=== PATIENT | female | born 1930 | race Caucasian/White ===

== ENCOUNTER 2017-06-01 15:06 | Inpatient (IN) | payer OTHER ==
[2017-06-01 15:16] VITALS: BMI 37.8
--- NOTE | 2017-06-01 16:39 | PDOC ---
History of Present Illness - General History Source: Patient Exam Limitations: No Limitations <Stormy Carpenter - Last Filed: 06/01/17 19:18> - General History Source: Patient, Family Exam Limitations: No Limitations - History of Present Illness Initial Comments: 06/01/17 16:44 The patient is a 87 year old female, with a significant past medical history of hypertension, hyperlipidemia, CKD, diverticulitis, GERD, TIA, rheumatoid arthritis, skin cancer who presents to the emergency department with rectal bleeding since approximately 21:00 last night. The patient reports she noted red blood in the toilet bowl last night. Since then, patient reports at least 5- 6 more episodes of hematochezia. Patient denies any associated melena, abdominal pain, nausea, vomiting, diarrhea, or constipation. She denies any associated chest pain, shortness of breath, diaphoresis, or palpitations. She reports some weakness, but denies any fever, chills, dizziness, lightheadedness , or headache. She denies any dysuria, hematuria, frequency, or urgency. As per daughter, patient is on plavix, but she did not take it this morning. Allergies: Allopurinol, Sulfa(sulfonamide abx), NSAIDS Past Surgical History: None reported Social History: Nonsmoker. No ETOH or recreational drug use. PCP: Dr. Mora Senior Benefits Specialist: Dr. Anglin Physical Metallurgist: Dr. Wilkins <Julio Dumont - Last Filed: 06/01/17 21:45> - General Chief Complaint: Rectal Bleed Stated Complaint: RECTAL BLEED Past History - Past Medical History Anemia: No Asthma: No Cancer: Yes (skin) Cardiac Disorders: No CVA: Yes (TIA'S) COPD: No CHF: Yes (AUG 2013) Dementia: No Diabetes: No GI Disorders: Yes (GERD, ULCER) Disorders: Yes (chronic kidney disease RENAL FAILURE 1995) HTN: Yes Hypercholesterolemia: Yes Liver Disease: No Seizures: No Thyroid Disease: No - Surgical History Abdominal Surgery: No Appendectomy: No Cardiac Surgery: No Cholecystectomy: No Lung Surgery: No Neurologic Surgery: No Orthopedic Surgery: No - Immunization History Immunization Up to Date: Yes - Suicide/Smoking/Psychosocial Hx Smoking Status: No Smoking History: Never smoked Have you smoked in the past 12 months: No Number of Cigarettes Smoked Daily: 0 Hx Alcohol Use: No Drug/Substance Use Hx: No Substance Use Type: None Hx Substance Use Treatment: No <Stormy Carpenter - Last Filed: 06/01/17 19:18> <Julio Dumont - Last Filed: 06/01/17 21:45> - Past Medical History Allergies/Adverse Reactions: Allergies Allergy/AdvReac Type Severity Reaction Status Date / Time allopurinol Allergy Severe Swelling Verified 06/01/17 15:11 Sulfa (Sulfonamide Allergy Unknown Rash Verified 06/01/17 15:11 Antibiotics) NSAIDS (Non-Steroidal AdvReac Severe Nausea Verified 06/01/17 15:11 Anti-Inflamma Home Medications: Ambulatory Orders Ezetimibe [Zetia] 10 mg PO DAILY #0 tablet 09/02/13 Hydroxychloroquine So4 [Plaquenil -] 200 mg PO BID #0 tablet 09/02/13 Cholecalciferol (Vitamin D3) [Vitamin D] 2,000 iu PO DAILY 05/15/14 Clopidogrel Bisulfate [Plavix -] 75 mg PO DAILY 05/15/14 Ethacrynic Acid [Edecrin] 25 mg PO DAILY 05/15/14 Losartan Potassium [Cozaar] 100 mg PO HS 05/15/14 Atenolol [Tenormin -] 75 mg PO DAILY 06/01/17 Review of Systems - Review of Systems Able to Perform ROS?: Yes Comments:: 06/01/17 16:44 GENERAL/CONSTITUTIONAL: Yes weakness. No fever or chills. HEAD, EYES, EARS, NOSE AND THROAT: No change in vision. No ear pain or discharge. No sore throat. CARDIOVASCULAR: No chest pain or shortness of breath. RESPIRATORY: No cough, wheezing, or hemoptysis. GASTROINTESTINAL: Yes rectal bleeding, hematochezia. No melena, abdominal pain, nausea, vomiting, diarrhea or constipation. GENITOURINARY: No dysuria, frequency, or change in urination. MUSCULOSKELETAL: No joint or muscle swelling or pain. No neck or back pain. SKIN: No rash NEUROLOGIC: No headache, vertigo, loss of consciousness, or change in strength/ sensation. ENDOCRINE: No increased thirst. No abnormal weight change. HEMATOLOGIC/LYMPHATIC: No anemia, easy bleeding, or history of blood clots. ALLERGIC/IMMUNOLOGIC: No hives or skin allergy. <Julio Dumont - Last Filed: 06/01/17 21:45> *Physical Exam - Vital Signs Last Vital Signs Temp Pulse Resp BP Pulse Ox 98.2 F 74 20 155/92 99 06/01/17 15:12 06/01/17 15:12 06/01/17 15:12 06/01/17 15:12 06/01/17 15:12 <Stormy Carpenter - Last Filed: 06/01/17 19:18> - Vital Signs Last Vital Signs Temp Pulse Resp BP Pulse Ox 98.2 F 74 20 155/92 99 06/01/17 15:12 06/01/17 15:12 06/01/17 15:12 06/01/17 15:12 06/01/17 15:12 - Physical Exam Comments: 06/01/17 16:45 GENERAL: Awake, alert, and fully oriented, in no acute distress HEAD: No signs of trauma EYES: PERRLA, EOMI, sclera anicteric, conjunctiva clear ENT: Auricles normal inspection, hearing grossly normal, nares patent. Moist mucosa NECK: Normal ROM, supple, no lymphadenopathy, JVD, or masses LUNGS: Breath sounds equal, clear to auscultation bilaterally. No wheezes, and no crackles HEART: Systolic murmur. Regular rate and rhythm, normal S1 and S2, rubs or gallops ABDOMEN: LLQ tenderness to palpation, but no guarding or rebound. Soft, normoactive bowel sounds. No guarding, no rebound. No masses EXTREMITIES: Normal range of motion, no edema. No clubbing or cyanosis. No cords, erythema, or tenderness. DP/PT pulses 2+ and symmetric. NEUROLOGICAL: Moves all extremities. Normal speech. SKIN: Warm, Dry, normal turgor, no rashes or lesions noted. <Julio Dumont - Last Filed: 06/01/17 21:45> Heart Score/ECG Review #1 ECG reviewed & interpreted by me at: 16:59 General ECG Interpretation: Sinus Rhythm, Normal Rate (63), Normal Intervals, No acute ischemic changes (TWI I, AVL V2. ( old)) Compared to previous ECG there are: No significant change (comparison 08/27/2013 ) <Sotrmy Carpenter - Last Filed: 06/01/17 19:18> ED Treatment Course - LABORATORY CBC & Chemistry Diagram: 06/01/17 16:41 06/01/17 16:41 <Stormy Carpenter - Last Filed: 06/01/17 19:18> - LABORATORY CBC & Chemistry Diagram: 06/01/17 16:41 06/01/17 16:41 - RADIOLOGY Radiograph Interpretation: 06/01/17 21:44 EXAM: CT Abdomen and Pelvis INTERPRETED BY: Dr. Hopper REVIEWED BY: Dr. Carpenter IMPRESSION: 1. Calcifications of the aortic and mitral valves. 2. Colonic diverticulosis. 3. Mild dilatation of the midabdominal aorta. 4. Mild dilatation of the right common iliac artery. <Julio Dumont - Last Filed: 06/01/17 21:45> Medical Decision Making - Medical Decision Making 06/01/17 16:36 87 yo F with h/o prior diverticuli , htn, tia, CKD, HLD, RA here today with c/o bright red blood per rectum. started yesterday evening. has had more than 5 - 6 bm, bright red blood mixed with stool. did not take plavix today. feeling weak. no cp no sob. no abd pain. no f/c awake alert lungs clear heart rrr. systolic murmur. abd soft llq ttp. no rebound no guarding. skin warm and dry. plan: differential diverticulosis, diverticulitis, colitis. anemia. plan labs ekg ct a/p cbc byron sutherlandmyesha admit . will d/w dr. anglin ( pt GI) and DR Mora. pcp. renal doctor Dr. Posey 06/01/17 19:18 hgb 11.1, will admit for serial h/h. ct results pending. will admit d/w dr wolfe. who admit . <Stormy Carpenter - Last Filed: 06/01/17 19:18> - Medical Decision Making 06/01/17 19:09 First call placed to Dr. Mora at 19:09. Awaiting call back from Dr. Wolfe. Case discussed with Dr. Wolfe at 19:15. <Julio Dumont - Last Filed: 06/01/17 21:45> *DC/Admit/Observation/Transfer - Discharge Dispostion Admit: Yes <Stormy Carpenter - Last Filed: 06/01/17 19:18> - Attestations Scribe Attestion: 06/01/17 16:45 Documentation prepared by Julio Dumont, acting as medical billing clerk for Stormy Carpenter MD. <Julio Dumont - Last Filed: 06/01/17 21:45> Diagnosis at time of Disposition: GI bleed
[2017-06-01 17:04] LABS: BASOPHIL 0.8 % (0-2.0); EOSINOPHIL 5.2 % (0-4.5); MCH 31.5 pg (25.7-33.7); MCHC 33.6 g/dl (32.0-36.0); MEAN PLT VOLUME 10.3 fl (7.5-11.1); NEUTROPHILS 59.4 % (42.8-82.8); PLATELET COUNT 179 K/MM3 (134-434); RDW 13.1 % (11.6-15.6)
[2017-06-01 17:14] LABS: INR 0.93 (0.82-1.09); PROTHROMBIN TIME (PATIENT) 10.2 SEC (9.98-11.88)
[2017-06-01 17:16] LABS: ACTIVATED PTT 26.5 SECONDS (26.9-34.4)
[2017-06-01 17:31] LABS: ALBUMIN 3.4 g/dl (3.4-5.0); ANION GAP 7 (8-16); BILIRUBIN,TOTAL 0.2 mg/dL (0.2-1.0); CALCIUM 8.5 mg/dL (8.5-10.1); CO2 27 mmol/L (21-32); CREATININE 1.6 mg/dL (0.55-1.02); GLUCOSE,RANDOM 97 mg/dL (74-106); SGOT/AST 22 U/L (15-37); SGPT/ALT 24 U/L (12-78); TOT PROT 5.8 g/dl (6.4-8.2)
[2017-06-01 17:33] LABS: ALK PHOS 62 U/L (45-117); CPK 152 IU/L (26-192); TROPONIN I < 0.02 ng/ml (0.00-0.05)
[2017-06-02 07:56] LABS: MCH 31.4 pg (25.7-33.7); MCHC 33.1 g/dl (32.0-36.0); MEAN CELL VOLUME 94.7 fl (80-96); PLATELET COUNT 157 K/MM3 (134-434); RDW 12.5 % (11.6-15.6); WHITE BLOOD COUNT 4.5 K/mm3 (4.0-10.0)
[2017-06-02 08:25] LABS: ALBUMIN 2.9 g/dl (3.4-5.0); ANION GAP 8 (8-16); CALCIUM 8.3 mg/dL (8.5-10.1); CO2 27 mmol/L (21-32); GLUCOSE,RANDOM 90 mg/dL (74-106); SGPT/ALT 19 U/L (12-78)
[2017-06-02 08:27] LABS: ALK PHOS 55 U/L (45-117); BILIRUBIN,TOTAL 0.4 mg/dL (0.2-1.0); CREATININE 1.6 mg/dL (0.55-1.02); SGOT/AST 19 U/L (15-37); TOT PROT 5.2 g/dl (6.4-8.2)
--- NOTE | 2017-06-02 09:19 | CON.GI ---
Consult Consult Specialty:: GI Referred by:: Michele Wolfe Reason for Consultation:: Rectal bleeding - History of Present Illness Chief Complaint: Pt seen by Dr Betancur in our office yesterday for lower GI bleed. I have brought in a copy of his office consultation note. Given her age, comorbidities, and the presence of gross blood on rectal exam, he thought hospital observation was prudent. Pt denies any further bowel movements since coming to hospital. Her Hgb has dropped since her last outpatient Hgb one month ago. - History Source History Provided By: Patient, Medical Record (Dr Betancur's note, also patient is very alert and oriented, good historian.) - Past Medical History Cardio/Vascular: Yes: HTN, Hyperlipdemia Renal/: Yes: Renal Inusuff Musculoskeletal: Yes: Osteoarthritis Rheumatology: Yes: Rheumatoid Arthritis - Alcohol/Substance Use Hx Alcohol Use: No - Smoking History Smoking history: Never smoked Have you smoked in the past 12 months: No Aproximately how many cigarettes per day: 0 - Social History ADL: Independent History of Recent Travel: No Home Medications - Allergies Allergies/Adverse Reactions: Allergies Allergy/AdvReac Type Severity Reaction Status Date / Time allopurinol Allergy Severe Swelling Verified 06/01/17 15:11 Sulfa (Sulfonamide Allergy Unknown Rash Verified 06/01/17 15:11 Antibiotics) NSAIDS (Non-Steroidal AdvReac Severe Nausea Verified 06/01/17 15:11 Anti-Inflamma - Home Medications Home Medications: Ambulatory Orders Ezetimibe [Zetia] 10 mg PO DAILY #0 tablet 09/02/13 Hydroxychloroquine So4 [Plaquenil -] 200 mg PO BID #0 tablet 09/02/13 Cholecalciferol (Vitamin D3) [Vitamin D] 2,000 iu PO DAILY 05/15/14 Clopidogrel Bisulfate [Plavix -] 75 mg PO DAILY 05/15/14 Ethacrynic Acid [Edecrin] 25 mg PO DAILY 05/15/14 Losartan Potassium [Cozaar] 100 mg PO HS 05/15/14 Atenolol [Tenormin -] 75 mg PO DAILY 06/01/17 Home Medications (free text): Pt had been on clopidogrel through 05/31/17. Family Disease History - Family Disease History Family Disease History: CA: Daughter Physical Exam-GI Vital Signs: Vital Signs Temperature 97.8 F 06/02/17 05:30 Pulse Rate 63 06/02/17 05:30 Respiratory Rate 18 06/02/17 05:30 Blood Pressure 138/56 06/02/17 05:30 O2 Sat by Pulse Oximetry (%) 95 06/01/17 21:25 Cardiovascular: Yes: Regular Rate and Rhythm (II/ RYLEE through precordium.) Gastrointestinal Inspection: Yes: WNL (No tenderness, masses, or organomegaly.) Labs: CBC, BMP 06/02/17 06:45 06/02/17 06:45 INR, PTT INR 0.93 (0.82-1.09) 06/01/17 16:41 Imaging - Results Cat Scan: Image Reviewed (Marked diverticular disease; official report pending.) Problem List - Problems (1) GI bleed Code(s): K92.2 - GASTROINTESTINAL HEMORRHAGE, UNSPECIFIED Assessment/Plan Likely diverticular bleed. Pt's mother had colon cancer, she has a personal history of colon polyps, so I would recommend another colonoscopy as her last was performed in 2004. Nevertheless, this type of bleeding is more typical of diverticulosis than malignancy. I do not see any sign of ischemic colitis on the CT scan, but I question whether there is a narrowed area in the sigmoid colon. I would await the reading by a qualified radiologist. I recommend: 1) Stop Plavix, at least until the GI workup is completed. Ms Townsend does not know why she is on Plavix, she denies any history of cardiac stenting or TIA. She also states she has had frequent falls despite using a walker, and that is another reason to hesitate before reinitiating a powerful antiplatelet agent. 2) Begin full liquid diet. Her next BM will doubtless show blood, so monitoring of her Hgb every 8 hours will be the best way to determine whether there is active bleeding. 3) If Hgb stable, advance diet tomorrow and consider discharge in 48 hrs with outpatient follow-up. Thank you. - Addison Rutledge MD
--- NOTE | 2017-06-02 09:41 | EKG ---
Test Reason : Blood Pressure : / mmHG Vent. Rate : 063 BPM Atrial Rate : 063 BPM P-R Int : 192 ms QRS Dur : 092 ms QT Int : 446 ms P-R-T Axes : 025 002 118 degrees QTc Int : 456 ms NORMAL SINUS RHYTHM ABNORMAL ECG WHEN COMPARED WITH ECG OF 27-AUG-2013 16:30, T WAVE INVERSION NOW EVIDENT IN LATERAL LEADS Confirmed by AILEEN PAREDES MD ([id number]) on 06/02/2017 9:41:26 AM Referred By: Confirmed By:AILEEN PAREDES MD
[2017-06-02] MEDS ORDERED: ETHACRYNIC ACID 25 MG TABLET PO SCH (10:00)
[2017-06-02 10:51] LABS: MCH 30.8 pg (25.7-33.7); MCHC 32.5 g/dl (32.0-36.0); MEAN CELL VOLUME 94.8 fl (80-96); MEAN PLT VOLUME 10.1 fl (7.5-11.1); PLATELET COUNT 171 K/MM3 (134-434); RDW 12.9 % (11.6-15.6); WHITE BLOOD COUNT 4.9 K/mm3 (4.0-10.0)
[2017-06-02] MEDS ORDERED: PT OWN MED DRAWER 7, Y5N ONE ×2 (10:53→21:42)
--- NOTE | 2017-06-02 10:55 | HP ---
Admitting History and Physical - Primary Care Physician PCP: Clair Mora - Admission Chief Complaint: rectal bleeding History of Present Illness: ER HISTORY - History of Present Illness Initial Comments: 06/01/17 16:44 The patient is a 87 year old female, with a significant past medical history of hypertension, hyperlipidemia, CKD, diverticulitis, GERD, TIA, rheumatoid arthritis, skin cancer who presents to the emergency department with rectal bleeding since approximately 21:00 last night. The patient reports she noted red blood in the toilet bowl last night. Since then, patient reports at least 5- 6 more episodes of hematochezia. Patient denies any associated melena, abdominal pain, nausea, vomiting, diarrhea, or constipation. She denies any associated chest pain, shortness of breath, diaphoresis, or palpitations. She reports some weakness, but denies any fever, chills, dizziness, lightheadedness , or headache. She denies any dysuria, hematuria, frequency, or urgency. As per daughter, patient is on plavix, but she did not take it this morning. Allergies: Allopurinol, Sulfa(sulfonamide abx), NSAIDS Past Surgical History: None reported Social History: Nonsmoker. No ETOH or recreational drug use. PCP: Dr. Mora Front Office Manager: Dr. Anglin Ux Developer: Dr. Wilkins Pt examined by me on the floors Pt was having rectal bleeding day before yesterday after 9pm-- bloody bm x 5-6 times. Denies any abdominal pain or dizziness.No chest pain , palpitations. I received a call from Dr Betancur yesterday as the pt had come to his office and she had rectal bleeding -- he sent her to ER for observation. Pt has not had a bloody bm since yesterday morning. No abdominal pain She tolerated clear liquids this AM History Source: Patient, Medical Record Limitations to Obtaining History: No Limitations - Past Medical History Cardiovascular: Yes: HTN, Hyperlipdemia Renal/: Yes: Renal Inusuff Musculoskeletal: Yes: Osteoarthritis Rheumatology: Yes: Rheumatoid Arthritis - Smoking History Smoking history: Never smoked Have you smoked in the past 12 months: No Aproximately how many cigarettes per day: 0 - Alcohol/Substance Use Hx Alcohol Use: No - Social History ADL: Independent History of Recent Travel: No Home Medications - Allergies Allergies/Adverse Reactions: Allergies Allergy/AdvReac Type Severity Reaction Status Date / Time allopurinol Allergy Severe Swelling Verified 06/01/17 15:11 Sulfa (Sulfonamide Allergy Unknown Rash Verified 06/01/17 15:11 Antibiotics) NSAIDS (Non-Steroidal AdvReac Severe Nausea Verified 06/01/17 15:11 Anti-Inflamma - Home Medications Home Medications: Ambulatory Orders Ezetimibe [Zetia] 10 mg PO DAILY #0 tablet 09/02/13 Hydroxychloroquine So4 [Plaquenil -] 200 mg PO BID #0 tablet 09/02/13 Cholecalciferol (Vitamin D3) [Vitamin D] 2,000 iu PO DAILY 05/15/14 Clopidogrel Bisulfate [Plavix -] 75 mg PO DAILY 05/15/14 Ethacrynic Acid [Edecrin] 25 mg PO DAILY 05/15/14 Losartan Potassium [Cozaar] 100 mg PO HS 05/15/14 Atenolol [Tenormin -] 75 mg PO DAILY 06/01/17 Family Disease History - Family Disease History Family Disease History: CA: Daughter Review of Systems - Review of Systems Constitutional: denies: Chills, Fever, Loss of Appetite, Weakness Respiratory: denies: Cough Gastrointestinal: reports: Rectal Bleeding. denies: Abdominal Pain, Nausea Physical Examination Vital Signs: Vital Signs Temperature 97.8 F 06/02/17 05:30 Pulse Rate 63 06/02/17 05:30 Respiratory Rate 18 06/02/17 05:30 Blood Pressure 138/56 06/02/17 05:30 O2 Sat by Pulse Oximetry (%) 95 06/01/17 21:25 Constitutional: Yes: No Distress, Calm Cardiovascular: Yes: Regular Rate and Rhythm Respiratory: Yes: CTA Bilaterally Gastrointestinal: Yes: Normal Bowel Sounds, Soft, Abdomen, Obese. No: Distention, Tenderness Edema: No Psychiatric: Yes: Alert, Oriented Labs: CBC, BMP 06/02/17 10:30 06/02/17 06:45 Imaging - Results Cat Scan: Report Reviewed EKG: Image Reviewed (NSR, T wave inversion) Problem List - Problems (1) GI bleed Code(s): K92.2 - GASTROINTESTINAL HEMORRHAGE, UNSPECIFIED (2) HTN (hypertension) Code(s): I10 - ESSENTIAL (PRIMARY) HYPERTENSION (3) Rheumatoid arthritis Code(s): M06.9 - RHEUMATOID ARTHRITIS, UNSPECIFIED (4) Chronic kidney disease Code(s): N18.9 - CHRONIC KIDNEY DISEASE, UNSPECIFIED Qualifiers: Chronic kidney disease stage: stage 3 (moderate) Qualified Code(s): N18.3 - Chronic kidney disease, stage 3 (moderate); N18.3 - Chronic kidney disease, stage 3 (moderate) (5) Diverticulosis Code(s): K57.90 - DVRTCLOS OF INTEST, PART UNSP, W/O PERF OR ABSCESS W/O BLEED Qualifiers: Diverticulosis bleeding: diverticulosis without bleeding Assessment/Plan PLAN Received iv fluids CT abd/pelvis noted \ No bloody bm so far Check CBC q 8H GI eval noted DC Plavix-- she was on it for 20years as a stroke precaution-- can not tolerate ASA-- sulpha allergy- father had h/o CVA Creatinine is better- was 1.9 on 05/05/17 continue with meds advance diet in AM if no drop in HCT SCD for DVT prophylaxis spoke with daughter
[2017-06-02] MEDS: LOSARTAN POTASSIUM 100 MG TABLET PO SCH (11:38)
[2017-06-02] MEDS: CHOLECALCIFEROL (VITAMIN D3) 1,000 UNIT TABLET (FP) PO SCH (11:38)
[2017-06-02] MEDS: ATENOLOL 50 MG TABLET (FP) PO SCH (11:38)
[2017-06-02] MEDS: HYDROXYCHLOROQUINE SO4 200 MG TABLET (FP) PO SCH ×2 (11:39→21:48)
[2017-06-02] MEDS: EZETIMIBE 10 MG TABLET (FP) PO SCH (11:39)
[2017-06-02 12:30] LABS: BASOPHIL 0.7 % (0-2.0); MCH 31.1 pg (25.7-33.7); MCHC 32.8 g/dl (32.0-36.0); MEAN CELL VOLUME 94.8 fl (80-96); MEAN PLT VOLUME 10.1 fl (7.5-11.1); NEUTROPHILS 55.9 % (42.8-82.8); PLATELET COUNT 169 K/MM3 (134-434); RDW 12.9 % (11.6-15.6)
[2017-06-02 20:51] LABS: MCH 30.9 pg (25.7-33.7); MCHC 32.8 g/dl (32.0-36.0); MEAN CELL VOLUME 94.3 fl (80-96); MEAN PLT VOLUME 10.5 fl (7.5-11.1); PLATELET COUNT 158 K/MM3 (134-434); RDW 12.7 % (11.6-15.6); WHITE BLOOD COUNT 6.1 K/mm3 (4.0-10.0)
[2017-06-03 08:28] LABS: MCH 31.4 pg (25.7-33.7); MCHC 33.2 g/dl (32.0-36.0); MEAN CELL VOLUME 94.4 fl (80-96); MEAN PLT VOLUME 9.8 fl (7.5-11.1); PLATELET COUNT 164 K/MM3 (134-434); RDW 12.7 % (11.6-15.6); WHITE BLOOD COUNT 5.2 K/mm3 (4.0-10.0)
[2017-06-03] MEDS ORDERED: ETHACRYNIC ACID 25 MG TABLET PO SCH (10:00)
[2017-06-03] MEDS ORDERED: PT OWN MED DRAWER 7, Y5N ONE (10:06)
[2017-06-03] MEDS: CHOLECALCIFEROL (VITAMIN D3) 1,000 UNIT TABLET (FP) PO SCH (10:28)
[2017-06-03] MEDS: LOSARTAN POTASSIUM 100 MG TABLET PO SCH (10:28)
[2017-06-03] MEDS: ATENOLOL 50 MG TABLET (FP) PO SCH (10:28)
[2017-06-03] MEDS: EZETIMIBE 10 MG TABLET (FP) PO SCH (10:29)
[2017-06-03] MEDS: HYDROXYCHLOROQUINE SO4 200 MG TABLET (FP) PO SCH ×2 (10:29→21:24)
--- NOTE | 2017-06-03 10:49 | PN ---
Progress Note (short form) - Note Progress Note: GI follow-up. No BM since admission. No further gross bleeding. Hgb/Hct stable. Tolerating diet. Continue to hold Plavix. Will d/c q8h H/H. Pt can follow-up as outpatient to arrange surveillance colonoscopy. Thank you - will no longer follow unless requested again. - Addison Rutledge MD Problem List - Problems (1) GI bleed Code(s): K92.2 - GASTROINTESTINAL HEMORRHAGE, UNSPECIFIED
--- NOTE | 2017-06-03 13:58 | PN ---
Progress Note, Physician Chief Complaint: had a bm today-- small amount of blood- no abdominal pain feels lightheaded ate regular food now - Current Medication List Current Medications: Active Medications Atenolol (Tenormin -) 50 mg PO DAILY REPLACED BY [facility] Last Admin: 06/03/17 10:28 Dose: 50 mg Cholecalciferol (Vitamin D3 -) 2,000 unit PO DAILY REPLACED BY [facility] Last Admin: 06/03/17 10:28 Dose: 2,000 unit Ezetimibe (Zetia -) 10 mg PO DAILY REPLACED BY [facility] Last Admin: 06/03/17 10:29 Dose: 10 mg Ethacrynic Acid (Edecrin -) 25 mg PO [facility] Hydroxychloroquine Sulfate (Plaquenil -) 200 mg PO BID REPLACED BY [facility] Last Admin: 06/03/17 10:29 Dose: 200 mg Losartan Potassium (Losartan Potassium) 100 mg PO DAILY REPLACED BY [facility] Last Admin: 06/03/17 10:28 Dose: 100 mg - Objective Vital Signs: Vital Signs Temperature 98.2 F 06/03/17 06:00 Pulse Rate 67 06/03/17 06:00 Respiratory Rate 18 06/03/17 06:00 Blood Pressure 119/56 06/03/17 06:00 O2 Sat by Pulse Oximetry (%) 95 06/01/17 21:25 Constitutional: Yes: No Distress, Calm Cardiovascular: Yes: Regular Rate and Rhythm Respiratory: Yes: CTA Bilaterally Gastrointestinal: Yes: Normal Bowel Sounds, Soft, Abdomen, Obese. No: Distention, Tenderness Edema: No Labs: CBC, BMP 06/03/17 08:00 06/02/17 06:45 INR, PTT INR 0.93 (0.82-1.09) 06/01/17 16:41 Problem List - Problems (1) GI bleed Code(s): K92.2 - GASTROINTESTINAL HEMORRHAGE, UNSPECIFIED (2) HTN (hypertension) Code(s): I10 - ESSENTIAL (PRIMARY) HYPERTENSION (3) Rheumatoid arthritis Code(s): M06.9 - RHEUMATOID ARTHRITIS, UNSPECIFIED (4) Chronic kidney disease Code(s): N18.9 - CHRONIC KIDNEY DISEASE, UNSPECIFIED Qualifiers: Chronic kidney disease stage: stage 3 (moderate) Qualified Code(s): N18.3 - Chronic kidney disease, stage 3 (moderate); N18.3 - Chronic kidney disease, stage 3 (moderate) (5) Diverticulosis Code(s): K57.90 - DVRTCLOS OF INTEST, PART UNSP, W/O PERF OR ABSCESS W/O BLEED Qualifiers: Diverticulosis bleeding: diverticulosis without bleeding Assessment/Plan PLAN HCT stable Lightheaded likely due to dehydration, staying in bed-- advised to get OOB now, may start walking with walker Regular diet Check HB tomorrow will dc in AM if stable SCD for DVT prophylaxis GI follow up noted
[2017-06-04 06:33] VITALS: TEMP 97.8
[2017-06-04 08:41] LABS: MCH 31.1 pg (25.7-33.7); MCHC 32.9 g/dl (32.0-36.0); MEAN CELL VOLUME 94.7 fl (80-96); PLATELET COUNT 156 K/MM3 (134-434); RDW 12.9 % (11.6-15.6); WHITE BLOOD COUNT 5.5 K/mm3 (4.0-10.0)
--- NOTE | 2017-06-04 09:02 | DS ---
Physical Examination Vital Signs: Vital Signs Temperature 97.8 F 06/04/17 06:00 Pulse Rate 70 06/04/17 06:00 Respiratory Rate 18 06/04/17 06:00 Blood Pressure 155/67 06/04/17 06:00 O2 Sat by Pulse Oximetry (%) 96 06/03/17 21:00 Labs: CBC, BMP 06/04/17 07:35 06/02/17 06:45 Discharge Summary Reason For Visit: GASTROINTESTINAL HEMORRHAGE Current Active Problems Chronic kidney disease (Acute) Diverticulosis (Acute) GI bleed (Acute) HTN (hypertension) (Acute) Rheumatoid arthritis (Acute) Condition: Improved - Instructions Disposition: HOME - Home Medications Comprehensive Discharge Medication List: Ambulatory Orders Ezetimibe [Zetia] 10 mg PO DAILY #0 tablet 09/02/13 Hydroxychloroquine So4 [Plaquenil -] 200 mg PO BID #0 tablet 09/02/13 Cholecalciferol (Vitamin D3) [Vitamin D] 2,000 iu PO DAILY 05/15/14 Clopidogrel Bisulfate [Plavix -] 75 mg PO DAILY 05/15/14 Ethacrynic Acid [Edecrin] 25 mg PO DAILY 05/15/14 Losartan Potassium [Cozaar] 100 mg PO HS 05/15/14 Atenolol [Tenormin -] 75 mg PO DAILY 06/01/17
[2017-06-04] MEDS ORDERED: PT OWN MED DRAWER 7, Y5N ONE (09:44)
[2017-06-04] MEDS: EZETIMIBE 10 MG TABLET (FP) PO SCH (09:45)
[2017-06-04] MEDS: CHOLECALCIFEROL (VITAMIN D3) 1,000 UNIT TABLET (FP) PO SCH (09:45)
[2017-06-04] MEDS: ATENOLOL 50 MG TABLET (FP) PO SCH (09:45)
[2017-06-04] MEDS: HYDROXYCHLOROQUINE SO4 200 MG TABLET (FP) PO SCH (09:46)
[2017-06-04] MEDS: LOSARTAN POTASSIUM 100 MG TABLET PO SCH (09:46)
[2017-06-04 11:44] VITALS: BP 152/70; PULSE 72
== END 2017-06-04 11:19 | disposition home or self-care (01) | DRG 379 ==
LOC: JER 15:06 → JERBED 19:20 → J6S 22:12
PROVIDERS: ADMIT Internal Medicine; ATTEND Internal Medicine
DX: K92.2 Gastrointestinal hemorrhage, unspecified (principal); N18.3 Chronic kidney disease, stage 3 (moderate); M06.9 Rheumatoid arthritis, unspecified; K57.90 Diverticulosis of intestine, part unspecified, without perforation or abscess without bleeding; I12.9 Hypertensive chronic kidney disease with stage 1 through stage 4 chronic kidney disease, or unspecified chronic kidney disease; K21.9 Gastro-esophageal reflux disease without esophagitis; E78.5 Hyperlipidemia, unspecified
CPT/HCPCS: 36415; 74176-TC; 80053; 82553; 84484; 85025; 85027; 85610; 85730; 86850; 86900; 86901; 93005; 93010; 99285-25